=== PATIENT | female | born 1965 | race Asian ===

== ENCOUNTER → 2018-02-27 | Day surgery (SDC) | payer OTHER ==
[~2018-02-27] MED LIST: AMLO1CAP12 PO; ATOR40TA59 PO; HYDROmorphone 2 MG/ML VIAL IV PRN; IV RINGERS,LACTATED 1000ML 1,000 ML IV SCH; LEVO75TA5 PO; LIDOCAINE 1% PF 2 ML VIAL. ID PRN; MORPHINE SULFATE 2 MG/ML VIAL. IV PRN; ONDANSETRON PF 4 MG/2 ML VIAL. IV PRN; PROCHLORPERAZINE 10 MG/2 ML VIAL. IV PRN; PROPOFOL 40 ML IV ONE; SITA1TAB7 PO; ePHEDrine PF IN SALINE 50 MG/5 ML DISP.SYRIN IV ONE; fentaNYL PF VIAL 100 MCG/2 ML VIAL IV PRN
[2018-02-27 08:32] VITALS: BP 122/71
--- NOTE | 2018-02-28 17:08 | PATHOLOGY ---
[facility] Accession Number: [id number] . 01 Material submitted: . PART A: CECAL POLYP PART B: RECTAL POLYP . 01 Clinical history: . Screening . 02 Diagnosis: A. Colon biopsy, cecal polyp: - Tubular adenoma. . B. Colorectal biopsy, rectal polyp: - Hyperplastic polyp. . 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 02 Comment: There is no high-grade dysplasia or evidence of malignancy. . 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 02 Electronically signed: . Delroy Nj MD, Pathologist NPI- [id number] . 01 Gross description: . A. Received in formalin labeled "Licona, Quoc, cecal polyp," is a single segment of posadas soft tissue measuring 0.6 cm in maximum dimension. The specimen is entirely submitted in cassette A1. . B. Received in formalin labeled "Licona, Quoc, rectal polyp," is a 0.6 x 0.5 x 0.5 cm polypoid piece of posadas soft tissue. The margin is inked and the specimen is sectioned perpendicular to the margin and entirely submitted in cassette B1. (TSD; 02/27/2018) TOB/TOB . 02 Pathologist provided ICD-10: D12.0, K62.1 . 02 CPT . 377367, 485332 Specimen Comment: A courtesy copy of this report has been sent to Specimen Comment: [phone], . Specimen Comment: Report sent to / DR CASTLE Performed at: [address], [place], [place] [id number] MD Yaya Morrison MD Phone: [phone] Performed at: 02 [facility] [address] [place], [place] [id number] MD Delroy Nj MD Phone: [phone]
== END | disposition home or self-care (01) ==
LOC: ENDOS 06:15
PROVIDERS: ATTEND Internal Medicine Gastroenterology
DX: D12.0 Benign neoplasm of cecum (principal); K62.1 Rectal polyp; K64.0 First degree hemorrhoids; I10 Essential (primary) hypertension; E11.9 Type 2 diabetes mellitus without complications; E03.9 Hypothyroidism, unspecified; E78.00 Pure hypercholesterolemia, unspecified; Z79.899 Other long term (current) drug therapy; Z79.84 Long term (current) use of oral hypoglycemic drugs; Z90.710 Acquired absence of both cervix and uterus; Z98.51 Tubal ligation status; Z98.890 Other specified postprocedural states
CPT/HCPCS: 45385; 82962; 88305; J2704; 45380